=== PATIENT | male | born 1940 | race Caucasian/White ===

== ENCOUNTER 2018-01-24 01:55 | Emergency (ER) | payer MEDICARE ==
[~2018-01-24] VITALS: Ht 170.2 cm; Wt 77.1 kg
[~2018-01-24 01:55] MED LIST: DONE10TA40; FURO20TA3 PO; HYDR-531 PO; NIFE30TA76; ONDA4TAB5 PO; OXYC-648 PO; SERT-160
[2018-01-24 03:22] LABS: Mean Corpuscular Hemoglobin 37.6 pg (28.0-32.0)
[2018-01-24 03:24] LABS: Hematocrit 30.2 % (41.0-53.0); Hemoglobin 10.3 g/dL (13.5-17.5); Mean Corpuscular Volume 110.4 fL (80.0-100.0); Red Blood Cells 2.74 10^6/uL (4.5-5.90); Red Cell Distribution Width 17.3 % (11.8-14.3); White Blood Cell 7.4 10^3/uL (4.4-10.8)
[2018-01-24 03:26] LABS: Platelet Count (auto) 77 10^3/uL (140-450)
[2018-01-24 03:27] LABS: Band Neutrophils % (manual) 0; Basophils % (manual) 0 (0.0-2.0); Blast Cells 0; Metamyelocytes % 0; Myelocytes % 0; Promyelocytes % 0; Reactive Lymphocytes 0
[2018-01-24 03:37] LABS: Albumin 2.4 g/dL (3.4-5.0); Anion Gap 8 (5-15); Aspartate Aminotransferase 28 U/L (15-37); BUN/Creatinine Ratio 14.2; Blood Urea Nitrogen 26 mg/dL (7-18); Calcium 7.6 mg/dL (8.5-10.1); Carbon Dioxide 18 mmol/L (21-32); Chloride 120 mmol/L (98-107); GFR African American 46 mL/min; GFR Non-African American 38 mL/min; Glucose 101 mg/dL (74-106); Magnesium 1.6 mg/dL (1.6-2.6); Potassium 3.5 mmol/L (3.5-5.1); Sodium 146 mmol/L (136-145)
[2018-01-24 03:42] LABS: Alanine Aminotransferase 38 U/L (16-61); Alkaline Phosphatase 56 U/L (45-117); Bilirubin, Total 0.6 mg/dL (0.2-1.0); Total Protein 5.7 g/dL (6.4-8.2)
[2018-01-24 04:00] LABS: Eosinophils % (manual) 2 (0-7); Lymphocytes % (manual) 12 (10.0-50.0); Monocytes % (manual) 13 (0-12)
[2018-01-24 08:07] LABS: Urine Bacteria NONE SEEN /hpf (None Seen); Urine Blood 1+ /uL (Negative); Urine Mucus FEW (None Seen); Urine Specific Gravity 1.021 (1.001-1.035); Urine WBC 2 /hpf (0 - 3)
[2018-01-24 10:22] VITALS: BP 132/94
== END 2018-01-24 10:31 | disposition home or self-care (01) ==
LOC: EDBD 01:55 → ER 01:57
DX: R07.89 Other chest pain (principal); I10 Essential (primary) hypertension; N28.9 Disorder of kidney and ureter, unspecified; D69.6 Thrombocytopenia, unspecified; E43 Unspecified severe protein-calorie malnutrition; G30.9 Alzheimer's disease, unspecified; C90.00 Multiple myeloma not having achieved remission; Z88.0 Allergy status to penicillin
CPT/HCPCS: 36415; 71045; 80053; 81001; 83735; 83880; 84484; 85007; 85027; 93005

== ENCOUNTER 2018-06-12 12:57 | Inpatient (IN) | payer MEDICARE ==
[~2018-06-12] VITALS: Ht 170.2 cm; Wt 74.1 kg
[2018-06-12] MEDS ORDERED: SODIUM CHLORIDE 0.9% 1,000 ML IVB ONE (13:27)
[2018-06-12 14:24] LABS: Urine Bacteria NONE SEEN /hpf (None Seen); Urine Blood 3+ /uL (Negative); Urine Specific Gravity 1.018 (1.001-1.035); Urine WBC 535 /hpf (0 - 3)
[2018-06-12 14:35] LABS: Basophils # (auto) 0 uL; Basophils % (auto) 1.4 % (0.0-2.0); Eosinophils # (auto) 0.1 uL; Eosinophils % (auto) 4.7 % (0.0-7.0); Hematocrit 30.3 % (41.0-53.0); Lymphocytes # (auto) 0.9 uL; Lymphocytes % (auto) 28.4 % (10.0-50.0); Mean Corpuscular Hemoglobin 33.2 pg (28.0-32.0); Mean Corpuscular Hgb Conc. 33.1 g/dL (32.0-36.0); Mean Corpuscular Volume 100.5 fL (80.0-100.0); Monocytes # (auto) 0.4 uL; Monocytes % (auto) 14.8 % (0.0-12.0); Neutrophils # (auto) 1.5 uL; Neutrophils % (auto) 50.7 % (37.0-80.0); Nucleated Red Blood Cells % 0.1 %; Platelet Count (auto) 149 10^3/uL (140-450); Red Blood Cells 3.01 10^6/uL (4.5-5.90); Red Cell Distribution Width 17.3 % (11.8-14.3)
[2018-06-12 14:52] LABS: Albumin 2.6 g/dL (3.4-5.0); BUN/Creatinine Ratio 17.4; Calcium 7.9 mg/dL (8.5-10.1); Potassium 3.7 mmol/L (3.5-5.1)
[2018-06-12 14:54] LABS: Bilirubin, Total 0.3 mg/dL (0.2-1.0); Total Protein 6.3 g/dL (6.4-8.2)
[2018-06-12 15:03] LABS: INR 1.04 (0.9-1.15); Partial Thromboplastin Time 29.4 sec (23.78-33.04); Prothrombin Time 11.1 sec (9.27-12.13)
[2018-06-12] MEDS ORDERED: cefTRIAXone 1GM/10ml IVPUSH 10 ML IV ONE (15:30)
[2018-06-12] MEDS ORDERED: ONDANSETRON HCL 4 MG/2 ML VIAL IV PRN (17:30)
[2018-06-12] MEDS ORDERED: HYDROcodone-ACET 5/325MG TAB PO PRN (17:30)
[2018-06-12] MEDS ORDERED: NITROGLYCERIN 0.4 MG SL TAB SL PRN (17:30)
[2018-06-12] MEDS ORDERED: MORPHINE SULF INJ 2 MG/ML SYRINGE 1ML IV PRN (17:30)
[2018-06-12 21:30] VITALS: BP 144/65
[2018-06-12] MEDS: MORPHINE SULF INJ 2 MG/ML SYRINGE 1ML IV PRN (22:10)
[2018-06-12] MEDS: CIPROFLOXACIN 400 MG/200 ML IV SCH (23:48)
[2018-06-13] MEDS ORDERED: diphenhdrAMINE HCL 50 MG/1 ML VL ONE (01:00)
[2018-06-13] MEDS ORDERED: LORazepam 2MG/ML-1ML VIAL ONE (01:00)
[2018-06-13] MEDS ORDERED: LORazepam 2MG/ML-1ML VIAL IV ONE (01:05)
[2018-06-13] MEDS ORDERED: diphenhdrAMINE HCL 50 MG/1 ML VL IV ONE (01:05)
[2018-06-13 05:00] VITALS: BP 132/73
[2018-06-13 09:00] VITALS: BP 123/59
[2018-06-13] MEDS: CIPROFLOXACIN 400 MG/200 ML IV SCH ×2 (10:15→22:48)
[2018-06-13 12:50] VITALS: BP 139/78
[2018-06-13 17:48] VITALS: BP 141/88
[2018-06-13] MEDS: D5W/SOD CHL 0.45% 1,000 ML IV SCH (17:59)
[2018-06-13 18:26] LABS: Basophils # (auto) 0.1 uL; Basophils % (auto) 1.6 % (0.0-2.0); Eosinophils # (auto) 0.1 uL; Eosinophils % (auto) 2.7 % (0.0-7.0); Hematocrit 33.9 % (41.0-53.0); Hemoglobin 11.3 g/dL (13.5-17.5); Lymphocytes # (auto) 0.8 uL; Lymphocytes % (auto) 23.9 % (10.0-50.0); Mean Corpuscular Hemoglobin 33.7 pg (28.0-32.0); Mean Corpuscular Hgb Conc. 33.4 g/dL (32.0-36.0); Mean Corpuscular Volume 101.1 fL (80.0-100.0); Monocytes # (auto) 0.5 uL; Neutrophils # (auto) 1.8 uL; Neutrophils % (auto) 55.8 % (37.0-80.0); Platelet Count (auto) 164 10^3/uL (140-450); Red Blood Cells 3.36 10^6/uL (4.5-5.90); Red Cell Distribution Width 17.1 % (11.8-14.3); White Blood Cell 3.2 10^3/uL (4.4-10.8)
[2018-06-13 18:40] LABS: Calcium 8.3 mg/dL (8.5-10.1); Potassium 3.7 mmol/L (3.5-5.1)
[2018-06-13 18:42] LABS: BUN/Creatinine Ratio 14.9
[2018-06-13] MEDS: MORPHINE SULF INJ 2 MG/ML SYRINGE 1ML IV PRN (20:54)
[2018-06-13 22:00] VITALS: BP 112/63
[2018-06-14] MEDS ORDERED: LORazepam 2MG/ML-1ML VIAL IM ONE ×2 (00:10→01:00)
[2018-06-14] MEDS ORDERED: diphenhdrAMINE HCL 50 MG/1 ML VL IV ONE (01:00)
[2018-06-14] MEDS ORDERED: HALOPERIDOL LACTATE 5 MG/ML INJ VIAL IM PRN (03:15)
[2018-06-14] MEDS: MORPHINE SULF INJ 2 MG/ML SYRINGE 1ML IV PRN (03:44)
[2018-06-14 05:00] VITALS: BP 118/67
[2018-06-14 10:45] LABS: Hematocrit 34.4 % (41.0-53.0); Hemoglobin 11.1 g/dL (13.5-17.5); Mean Corpuscular Hemoglobin 32.6 pg (28.0-32.0); Mean Corpuscular Hgb Conc. 32.2 g/dL (32.0-36.0); Mean Corpuscular Volume 101.2 fL (80.0-100.0); Platelet Count (auto) 153 10^3/uL (140-450); Red Cell Distribution Width 17.7 % (11.8-14.3); White Blood Cell 3.9 10^3/uL (4.4-10.8)
[2018-06-14 10:48] LABS: Basophils % (manual) 0 (0.0-2.0); Blast Cells 0; Eosinophils % (manual) 0 (0-7); Metamyelocytes % 0; Myelocytes % 0; Promyelocytes % 0; Reactive Lymphocytes 0
[2018-06-14 11:02] LABS: Anion Gap 9 (5-15); BUN/Creatinine Ratio 13.2; Blood Urea Nitrogen 23 mg/dL (7-18); Carbon Dioxide 23 mmol/L (21-32); Chloride 109 mmol/L (98-107); GFR African American 49 mL/min; GFR Non-African American 40 mL/min; Glucose 82 mg/dL (74-106); Sodium 141 mmol/L (136-145)
[2018-06-14 11:12] LABS: Band Neutrophils % (manual) 1; Lymphocytes % (manual) 46 (10.0-50.0); Monocytes % (manual) 18 (0-12)
[2018-06-14] MEDS: D5W/SOD CHL 0.45% 1,000 ML IV SCH (11:39)
[2018-06-14] MEDS: CIPROFLOXACIN 400 MG/200 ML IV SCH ×2 (11:39→21:34)
[2018-06-15 04:49] VITALS: BP 131/65
[2018-06-15] MEDS: D5W/SOD CHL 0.45% 1,000 ML IV SCH ×2 (06:19→18:32)
[2018-06-15 09:00] VITALS: BP 120/60
[2018-06-15] MEDS: CIPROFLOXACIN 400 MG/200 ML IV SCH ×2 (10:00→21:37)
[2018-06-15] MEDS ORDERED: fentaNYL CITRATE 100 MCG/2 ML VL ONE (10:20)
[2018-06-15] MEDS ORDERED: cefTRIAXone SOD 1,000 MG VL ONE (10:21)
[2018-06-15] MEDS ORDERED: MIDAZOLAM HCL 1MG/1ML-2 ML VIAL ONE (10:27)
[2018-06-15] MEDS ORDERED: LABETALOL HCL 5 MG/ML 4ML SYRINGE IV PRN (10:30)
[2018-06-15] MEDS ORDERED: ePHEDrine SULFATE 50 MG/ML AMP IV PRN (10:30)
[2018-06-15] MEDS ORDERED: MORPHINE SULFATE 4 MG/ML SYR/VIAL IV PRN (10:30)
[2018-06-15] MEDS ORDERED: ONDANSETRON HCL 4 MG/2 ML VIAL IV ONE (10:30)
[2018-06-15] MEDS ORDERED: MIDAZOLAM HCL 1MG/1ML-2 ML VIAL IV PRN (10:30)
[2018-06-15] MEDS ORDERED: KETOROLAC TROMETH 30 MG/ML 1ML VIAL IV ONE (10:30)
[2018-06-15] MEDS ORDERED: DEXAMETHASONE SOD PHOS 10MG/1ML VIAL INJ ONE (10:40)
[2018-06-15] MEDS ORDERED: PROPOFOL 10 MG/ML 20 ML IV ONE (10:41)
[2018-06-15] MEDS ORDERED: MORPHINE SULFATE 4 MG/ML SYR/VIAL IV ONE (12:00)
[2018-06-15 17:00] VITALS: BP 120/75
[2018-06-15 22:00] VITALS: BP 118/73
[2018-06-16 03:34] VITALS: BP 114/62
[2018-06-16 08:38] VITALS: BP 100/53
[2018-06-16] MEDS: CIPROFLOXACIN 400 MG/200 ML IV SCH (09:45)
[2018-06-16] MEDS: D5W/SOD CHL 0.45% 1,000 ML IV SCH (12:38)
[2018-06-16 17:21] VITALS: BP 109/58
[2018-06-16 22:42] VITALS: BP 138/88
[2018-06-17] MEDS: D5W/SOD CHL 0.45% 1,000 ML IV SCH ×2 (03:20→20:00)
[2018-06-17 05:40] VITALS: BP_SYST 124; BP_SYST 134; BP_DIAS 68; BP_DIAS 78
[2018-06-17] MEDS ORDERED: LORazepam 2MG/ML-1ML VIAL ONE (06:30)
[2018-06-17] MEDS ORDERED: LORazepam 2MG/ML-1ML VIAL IV ONE (06:45)
[2018-06-17 09:00] VITALS: BP 146/71
[2018-06-17] MEDS: CIPROFLOXACIN HCL 500 MG TAB PO SCH (09:51)
[2018-06-17] MEDS ORDERED: CIPROFLOXACIN 400 MG/200 ML IV SCH (10:00)
[2018-06-17 13:00] VITALS: BP 140/79
[2018-06-17] MEDS ORDERED: QUEtiapine FUMARATE 25 MG TAB PO ONE (14:30)
[2018-06-17] MEDS ORDERED: LORazepam 2MG/ML-1ML VIAL IM ONE ×2 (15:15→22:00)
[2018-06-17 16:57] VITALS: BP 154/82
[2018-06-17 22:00] VITALS: BP 147/77
[2018-06-17] MEDS: QUEtiapine FUMARATE 25 MG TAB PO SCH (22:20)
[2018-06-18] MEDS: LORazepam 2MG/ML-1ML VIAL IM PRN ×2 (05:02→19:23)
[2018-06-18 07:01] LABS: Hematocrit 30.4 % (41.0-53.0); Hemoglobin 10.2 g/dL (13.5-17.5); Mean Corpuscular Hemoglobin 33.8 pg (28.0-32.0); Mean Corpuscular Hgb Conc. 33.7 g/dL (32.0-36.0); Mean Corpuscular Volume 100.4 fL (80.0-100.0); Platelet Count (auto) 129 10^3/uL (140-450); Red Blood Cells 3.02 10^6/uL (4.5-5.90); Red Cell Distribution Width 17.1 % (11.8-14.3)
[2018-06-18 07:05] LABS: Band Neutrophils % (manual) 0; Basophils % (manual) 0 (0.0-2.0); Blast Cells 0; Metamyelocytes % 0; Myelocytes % 0; Promyelocytes % 0; Reactive Lymphocytes 0
[2018-06-18 07:22] LABS: BUN/Creatinine Ratio 21.1; Calcium 7.9 mg/dL (8.5-10.1); Potassium 3.8 mmol/L (3.5-5.1)
[2018-06-18 08:16] LABS: Eosinophils % (manual) 7 (0-7); Lymphocytes % (manual) 29 (10.0-50.0); Monocytes % (manual) 14 (0-12)
[2018-06-18 09:00] VITALS: BP 137/75
[2018-06-18] MEDS: QUEtiapine FUMARATE 25 MG TAB PO SCH ×2 (10:00→22:00)
[2018-06-18] MEDS: D5W/SOD CHL 0.45% 1,000 ML IV SCH (12:40)
[2018-06-18 13:00] VITALS: BP 139/70
[2018-06-18] MEDS: CIPROFLOXACIN HCL 500 MG TAB PO SCH (15:27)
[2018-06-18 17:00] VITALS: BP 133/75
[2018-06-18 22:00] VITALS: BP 122/61
[2018-06-19 05:00] VITALS: BP 129/58
[2018-06-19] MEDS: D5W/SOD CHL 0.45% 1,000 ML IV SCH ×2 (05:20→22:00)
[2018-06-19] MEDS: LORazepam 2MG/ML-1ML VIAL IM PRN (08:00)
[2018-06-19] MEDS: CIPROFLOXACIN HCL 500 MG TAB PO SCH (10:00)
[2018-06-19] MEDS: QUEtiapine FUMARATE 25 MG TAB PO SCH ×2 (10:00→22:18)
[2018-06-19 17:11] VITALS: BP 109/58
[2018-06-19 20:32] VITALS: BP 121/70
[2018-06-20] MEDS: LORazepam 2MG/ML-1ML VIAL IM PRN (01:59)
[2018-06-20] MEDS: D5W/SOD CHL 0.45% 1,000 ML IV SCH (07:48)
[2018-06-20 08:14] LABS: BUN/Creatinine Ratio 23.5; Calcium 8.1 mg/dL (8.5-10.1); Potassium 3.9 mmol/L (3.5-5.1)
[2018-06-20 09:00] VITALS: BP 127/79
[2018-06-20] MEDS: QUEtiapine FUMARATE 25 MG TAB PO SCH ×2 (09:31→22:02)
[2018-06-20] MEDS: CIPROFLOXACIN HYDROCHLORIDE 250 MG TAB PO SCH ×2 (09:31→22:02)
[2018-06-20 13:00] VITALS: BP 111/59
[2018-06-20 17:00] VITALS: BP 122/67
[2018-06-20 21:47] VITALS: BP 112/65
[2018-06-21 05:43] VITALS: BP 124/68
[2018-06-21 06:33] LABS: Calcium 7.8 mg/dL (8.5-10.1); Potassium 4.2 mmol/L (3.5-5.1)
[2018-06-21] MEDS: D5W/SOD CHL 0.45% 1,000 ML IV SCH (06:46)
[2018-06-21 06:51] LABS: BUN/Creatinine Ratio 26.3
[2018-06-21 12:02] VITALS: BP 140/82
[2018-06-21] MEDS: QUEtiapine FUMARATE 25 MG TAB PO SCH ×2 (12:49→22:00)
[2018-06-21] MEDS: CIPROFLOXACIN HYDROCHLORIDE 250 MG TAB PO SCH ×2 (12:49→22:12)
[2018-06-21 14:54] VITALS: BP 122/74
[2018-06-21 17:16] VITALS: BP 134/77
[2018-06-22 05:21] VITALS: BP 113/59
[2018-06-22 06:38] LABS: BUN/Creatinine Ratio 28.1; Calcium 7.8 mg/dL (8.5-10.1); Potassium 4.3 mmol/L (3.5-5.1)
[2018-06-22 08:00] VITALS: BP 128/72
[2018-06-22 09:00] VITALS: BP 128/72
[2018-06-22 13:00] VITALS: BP 103/55
[2018-06-22] MEDS: QUEtiapine FUMARATE 25 MG TAB PO SCH ×2 (13:08→21:41)
[2018-06-22] MEDS: CIPROFLOXACIN HYDROCHLORIDE 250 MG TAB PO SCH ×2 (13:08→21:41)
[2018-06-22] MEDS: LORazepam 2MG/ML-1ML VIAL IM PRN (15:35)
[2018-06-22] MEDS: D5W/SOD CHL 0.45% 1,000 ML IV SCH ×2 (16:40)
[2018-06-22 17:00] VITALS: BP 114/50
[2018-06-22] MEDS ORDERED: LORazepam 0.5 MG TAB PO PRN (18:45)
[2018-06-22 20:35] VITALS: BP 115/62
[2018-06-23 09:00] VITALS: BP 116/59
[2018-06-23] MEDS: D5W/SOD CHL 0.45% 1,000 ML IV SCH (09:20)
[2018-06-23] MEDS: QUEtiapine FUMARATE 25 MG TAB PO SCH ×2 (10:25→22:27)
[2018-06-23] MEDS: CIPROFLOXACIN HYDROCHLORIDE 250 MG TAB PO SCH ×2 (10:25→22:26)
[2018-06-23 13:00] VITALS: BP 120/60
[2018-06-23 17:00] VITALS: BP 110/58
[2018-06-23] MEDS: Ensure Enlive Strawberry 8oz Bottle PO SCH (18:00)
[2018-06-23 20:00] VITALS: BP 148/83
[2018-06-23 22:00] VITALS: BP 127/70
[2018-06-24] MEDS: D5W/SOD CHL 0.45% 1,000 ML IV SCH ×2 (02:00→19:00)
[2018-06-24 05:00] VITALS: BP 131/70
[2018-06-24] MEDS: Ensure Enlive Strawberry 8oz Bottle PO SCH ×2 (08:00→18:00)
[2018-06-24 08:59] VITALS: BP 123/71
[2018-06-24] MEDS: CIPROFLOXACIN HYDROCHLORIDE 250 MG TAB PO SCH ×2 (10:40→22:17)
[2018-06-24] MEDS: QUEtiapine FUMARATE 25 MG TAB PO SCH ×2 (10:40→22:17)
[2018-06-24 13:15] VITALS: BP 143/72
[2018-06-24 15:59] LABS: Basophils # (auto) 0.1 uL; Eosinophils # (auto) 0.2 uL; Hemoglobin 10.5 g/dL (13.5-17.5); Lymphocytes # (auto) 1.1 uL; Mean Corpuscular Hgb Conc. 33.8 g/dL (32.0-36.0); Neutrophils # (auto) 1.2 uL; Nucleated Red Blood Cells % 0.1 %
[2018-06-24 16:09] LABS: Basophils % (auto) 1.8 % (0.0-2.0); Eosinophils % (auto) 6.2 % (0.0-7.0); Lymphocytes % (auto) 35.3 % (10.0-50.0); Mean Corpuscular Hemoglobin 33.9 pg (28.0-32.0); Mean Corpuscular Volume 100.3 fL (80.0-100.0); Monocytes # (auto) 0.5 uL; Monocytes % (auto) 17.5 % (0.0-12.0); Neutrophils % (auto) 39.2 % (37.0-80.0); Platelet Count (auto) 156 10^3/uL (140-450); Red Blood Cells 3.09 10^6/uL (4.5-5.90); Red Cell Distribution Width 16.3 % (11.8-14.3)
[2018-06-24 16:13] LABS: BUN/Creatinine Ratio 26.4; Calcium 8.2 mg/dL (8.5-10.1); Potassium 4.6 mmol/L (3.5-5.1)
[2018-06-24 17:24] VITALS: BP 124/66
[2018-06-24 22:00] VITALS: BP 125/72
[2018-06-25 05:00] VITALS: BP 131/75
[2018-06-25 09:00] VITALS: BP 126/82
[2018-06-25] MEDS: Ensure Enlive Strawberry 8oz Bottle PO SCH (10:05)
[2018-06-25] MEDS: CIPROFLOXACIN HYDROCHLORIDE 250 MG TAB PO SCH (10:05)
[2018-06-25] MEDS: QUEtiapine FUMARATE 25 MG TAB PO SCH (10:05)
[2018-06-25] MEDS: D5W/SOD CHL 0.45% 1,000 ML IV SCH (11:20)
[2018-06-25 13:00] VITALS: BP 124/71
[2018-06-25 17:00] VITALS: BP 126/70
== END 2018-06-25 17:50 | DRG 659 ==
LOC: ER 12:57 → EDBD 12:57 → EDUNIT# 12:57 → TELE 12:58 → TELE-WESTW 20:10 → TELE-EAST 06-14 11:53 → EAST 06-14 12:23
PROVIDERS: ADMIT Specialist; ATTEND Specialist
PROC: 0TP98DZ Removal of Intraluminal Device from Ureter, Via Natural or Artificial Opening Endoscopic (ICD-10-PCS; principal; 2018-06-15 10:21)
PROC: 0TC08ZZ Extirpation of Matter from Right Kidney, Via Natural or Artificial Opening Endoscopic (ICD-10-PCS; 2018-06-15 10:21)
DX: N20.2 Calculus of kidney with calculus of ureter (principal); G92 Toxic encephalopathy; N39.0 Urinary tract infection, site not specified; N17.9 Acute kidney failure, unspecified; E44.1 Mild protein-calorie malnutrition; C90.00 Multiple myeloma not having achieved remission; D63.8 Anemia in other chronic diseases classified elsewhere; K80.20 Calculus of gallbladder without cholecystitis without obstruction; N28.1 Cyst of kidney, acquired; D72.819 Decreased white blood cell count, unspecified; E78.5 Hyperlipidemia, unspecified; F03.90 Unspecified dementia, unspecified severity, without behavioral disturbance, psychotic disturbance, mood disturbance, and anxiety; I12.9 Hypertensive chronic kidney disease with stage 1 through stage 4 chronic kidney disease, or unspecified chronic kidney disease; I48.91 Unspecified atrial fibrillation; J98.4 Other disorders of lung; K40.20 Bilateral inguinal hernia, without obstruction or gangrene, not specified as recurrent; K44.9 Diaphragmatic hernia without obstruction or gangrene; K42.9 Umbilical hernia without obstruction or gangrene; N18.3 Chronic kidney disease, stage 3 (moderate); N40.0 Benign prostatic hyperplasia without lower urinary tract symptoms; Z74.01 Bed confinement status; Z82.49 Family history of ischemic heart disease and other diseases of the circulatory system; Z87.442 Personal history of urinary calculi; Z96.641 Presence of right artificial hip joint; F32.9 Major depressive disorder, single episode, unspecified; Z68.25 Body mass index [BMI] 25.0-25.9, adult; Z88.0 Allergy status to penicillin
CPT/HCPCS: 36415; 71045; 74176; 80048; 80053; 81001; 82533; 83880; 84443; 85007; 85025; 85027; 85610; 85730; 86850; 86900; 86901; 87081; 87086; 93005; 96361; 96365; 96367; 96375; 97116; 97163; 97530; A4565; A6257; J0696; J1100; J2250; J2704